=== PATIENT | female | born 1960 | race Caucasian/White ===

== ENCOUNTER 2018-11-12 07:56 | Inpatient (IN) | payer OTHER ==
[~2018-11-12] VITALS: Ht 162.6 cm; Wt 69.4 kg
[~2018-11-12 07:56] MED LIST: AUGMENTIN 875875 M1 PO; IBUPROFEN 800800 M1 PO; NOHOMEMEDICATIONS; PERCOCET 7.5-31 EACH PO; ZOFRAN ODT4 MG PO
[2018-11-12 07:57] VITALS: BP 98/65
--- NOTE | 2018-11-12 08:53 | NUR ---
ALEJA NOTIFIED UPON PT RETURN FROM CT. PT CONNECTED TO BP AND PULSE OX MONITOR SHE WAS PRIOR TO CT
[2018-11-12 13:01] VITALS: BP 98/65
[2018-11-12] MEDS ORDERED: LISINOPRIL-HCT1 EAC2 PO (13:45)
[2018-11-12 13:57] VITALS: BP 97/54
[2018-11-12 14:19] LABS: ABSOLUTE BASOPHILS 0.1 thou/uL (0.0-0.2); ABSOLUTE LYMPHOCYTES 1.1 thou/uL (0.8-5.3); ABSOLUTE MONOCYTES 0.7 thou/uL (0.0-1.2); ABSOLUTE NEUTROPHILS 9.5 thou/uL (1.6-8.1); BASOPHILS 0.6 %; EOSINOPHILS 0.1 %; HEMOGLOBIN 13.5 gm/dL (12.0-15.0); LYMPHOCYTES 9.5 %; MCH 33.1 pg (26.0-34.0); MCHC 33.7 g/dL (28.0-37.0); MCV 98.1 fL (80.0-100.0); MONOCYTES 5.8 %; MPV 8.6 fl. (7.2-11.1); NUCLEATED RBCS 0 /100WBC; PLATELET COUNT* 385 thou/uL (150-400); RBC 4.07 mil/uL (4.20-5.00); RDW-CV 12.6 % (10.5-14.5); WBC 11.3 thou/uL (4.0-11.0)
--- NOTE | 2018-11-12 14:20 | NUR ---
PATIENT ADMITTED TO ROOM 318 VIA CART FROM ER AT 1312. PATIENT UP SBA FROM CART TO BED. PATIENT'S HISTORY, VITALS, AND ASSESSMENT COMPLETED. PULMONARY CONSULT CALLED AND ORDERS RECEIVED. PATIENT PLACED ON O2 AT 2L/NC. PATIENT'S IV TO LEFT AC PATENT. SCDS APPLIED. HOME MEDS RECONCILED. PATIENT PLACED ON FALL PRECAUTIONS. PATIENT STATES RELIEF FROM FENTANYL. MENU PROVIDED. INSTRUCTED TO CALL FOR ASSISTANCE FOR BATHROOM. CALL LIGHT WITHIN REACH. WILL CONTINUE WITH PLAN OF CARE.
[2018-11-12 14:25] LABS: CALCIUM 9.2 mg/dL (8.5-10.1); CREATININE 0.7 mg/dL (0.6-1.3); POTASSIUM 4.9 mmol/L (3.5-5.1)
[2018-11-12 14:30] LABS: ALBUMIN 3.5 g/dL (3.4-5.0); TOTAL BILIRUBIN 0.4 mg/dL (<0.1-1.0)
[2018-11-12] MEDS ORDERED: WELLBUTRIN XL150 MG PO (15:03)
[2018-11-12 16:43] VITALS: BP 108/68
--- NOTE | 2018-11-12 17:14 | NUR ---
PATIENT HAS BEEN A/O X 4 SINCE ADMISSION. PATIENT MEDICATED FOR PAIN X 2 WITH PARTIAL RELIEF. O2 IN PLACE AT 2L/NC. PATIENT GIVEN I.S. AND INSTRUCTED ON HOW TO USE. PATIENT STARTED ON RT TREAMENTS. PATIENT INSTRUCTED TO USE BSC. PULM CONSULT, ORDERS RECEIVED. PATIENT HAS HAD VISITORS AT BEDSIDE. FALL PRECAUTIONS IN PLACE. HOURLY ROUNDING COMPLETED. CALL LIGHT WITHIN REACH. WILL CONTINUE WITH PLAN OF CARE.
[2018-11-12 20:00] VITALS: BP 128/68
[2018-11-13 04:12] LABS: ABSOLUTE BASOPHILS 0.1 thou/uL (0.0-0.2); ABSOLUTE EOSINOPHILS 0.1 thou/uL (0.0-0.7); ABSOLUTE LYMPHOCYTES 1.7 thou/uL (0.8-5.3); ABSOLUTE NEUTROPHILS 5.9 thou/uL (1.6-8.1); BASOPHILS 0.8 %; HEMATOCRIT 37.3 % (37.0-47.0); HEMOGLOBIN 12.6 gm/dL (12.0-15.0); LYMPHOCYTES 19.7 %; MCH 33.2 pg (26.0-34.0); MCHC 33.9 g/dL (28.0-37.0); MONOCYTES 10.9 %; MPV 8.9 fl. (7.2-11.1); NUCLEATED RBCS 0 /100WBC; PLATELET COUNT* 337 thou/uL (150-400); POLYS 67.6 %; RDW-CV 12.8 % (10.5-14.5); WBC 8.7 thou/uL (4.0-11.0)
[2018-11-13 04:35] LABS: CALCIUM 9.2 mg/dL (8.5-10.1); CREATININE 0.7 mg/dL (0.6-1.3); POTASSIUM 4.2 mmol/L (3.5-5.1)
--- NOTE | 2018-11-13 16:44 | NUR ---
ASSESSMENT COMPLETE. PATIENT ALERT AND ORIENTED X4. PT REPORTS FEELING IMPROVED TODAY. PT GIVEN PO PAIN MEDICATION TWICE DURING THE DAY. PT DENIES N/V. TOLERATING MEALS. PT UP AD TAM WITH STEADY GAIT. PT DENIES ANY CONCERNS. SEE ASSESSMENT AND VITALS FOR OTHER DETAILS. CALL LIGHT WITHIN REACH, WILL CONTINUE PLAN OF CARE
[2018-11-13 17:03] VITALS: BP 125/64
[2018-11-14 00:10] VITALS: BP 107/67
--- NOTE | 2018-11-14 07:45 | NUR ---
PATIENT SLEPT MOST OF THE NIGHT. PATIENT WAS GIVEN NAUSEA MEDICINE ONCE THIS SHIFT AND PAIN MEDICINE TWICE. PATIENT IS POSSIBLY LEAVING TODAY. WILL CONTINUE TO MONITOR.
[2018-11-14 07:49] VITALS: BP 136/78
[2018-11-14 13:47] VITALS: BP 136/78
[2018-11-14] MEDS ORDERED: ACETAMINOPHEN-1 EAC1 PO (13:47)
--- NOTE | 2018-11-14 16:20 | NUR ---
ASSESSMENT COMPLETE. PT REPORTED NAUSEA WITH PAIN MEDICATION AND PROVIDER SWITHCED IT TO TYLENOL 3 AND PATIENT REPORTED NO NAUSEA. PT GIVEN DC INSTRUCTIONS AND PRESCRIPTIONS. PT VERBALIZES UNDERSTANDING. ALL BELONGINGS SENT WITH PATIENT. SEE ASSESSMENT AND VITALS FOR OTHER DETAILS.
[2018-11-14 16:23] VITALS: BP 136/78
--- NOTE | 2018-11-15 08:13 | CON ---
[address] [address] CONSULTATION Name: VAZQUEZCHRISTINA MEJIA Room: [address] IN M.R.#: [id number] Admission: 11/12/18 Attend Phys: Kai Tan MD Discharge: 11/14/18 Date of : 60 Report #: [id number] THIS REPORT FOR: //name// CC: Kai Tan Valeri Slaughters DATE OF SERVICE: 11/13/2018 REQUESTING PHYSICIAN: Kai Tan MD. REASON FOR CONSULTATION: Pneumothorax, rib fractures. DISCUSSION: The patient is a very pleasant 58-year-old woman who is a former smoker. She has no history of underlying lung disease. She presented to the Emergency Department yesterday following a fall at home. The bag she was carrying had gotten its strap caught. She lost her balance and fell down. The right side of her chest did hit a large plastic drum. Initially, felt like she had "the wind knocked out of me." However, she developed increasing pain and shortness of breath. She was then brought to the Emergency Department. She was seen in the ED. Imaging studies done then included a CT scan of her chest without contrast. It did reveal fractures on the right side. These included the 7th through 11th. Also, had a small pleural effusion, a very small pneumothorax was noted. She was admitted and we were asked to see her. She was afebrile, room air O2 saturations were in the mid to high 90s and was started on IV pain medication. I was contacted. Did have her placed on supplemental O2 to help facilitate reabsorption of the pneumothorax. She was seen this morning. She is a former smoker, quit about 7-8 years ago. Had not been a heavy smoker at that time. Did quit when she had gone through a divorce. Smoked less than a pack of cigarettes per day. No history of any documented heart or lung problems. She generally has been a fairly healthy woman. PAST MEDICAL HISTORY: Remarkable for requiring a prior hysterectomy for fibroids as well as cervical dysplasia (no cancer). Also, had cellulitis in her hand following a dog bite some years ago. She has also had dislocation toes on the foot requiring surgery, had a left wrist surgery for fracture. HOME MEDICATIONS: Include Wellbutrin for anxiety as well as an antihypertensive. SOCIAL HISTORY: Former smoker as noted. A long time employer of [employer] [facility] [place] [address] CONSULTATION Name: CHRISTINA VAZQUEZ Room: [address] IN 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 Remote smoker as noted. REVIEW OF SYSTEMS: ROS was done. Note positives above. She had no syncopal episodes. No chest pain or palpitations. This was a mechanical fall. She otherwise not had any issues with cough, chest pain, shortness of breath. No GI symptoms. Was unremarkable. FAMILY HISTORY: Positive for heart disease, breast cancer, diabetes. PHYSICAL EXAMINATION: GENERAL: The patient is seen in her room. Currently, she is off the oxygen. HEENT: Head is normocephalic and atraumatic. Sclerae nonicteric. Mucous membranes are moist. NECK: Negative for adenopathy. No JVD is noted. No supraclavicular adenopathy. HEART: Regular rate. No murmur or gallop is heard. She does have ecchymotic areas seen posteriorly the right chest wall. It is more distal. No subcutaneous emphysema is noted. She is tender with palpation over the right lateral and posterior ribs. LUNGS: Sounds are clear. Breath sounds are somewhat diminished mostly because of guarding and has a tendency to taking a deep breath. She has no clubbing. ABDOMEN: Unremarkable. LOWER EXTREMITIES: Negative for edema. SKIN: Warm and dry. NEUROLOGIC: She is alert and oriented x 3. LABORATORY AND X-RAY FINDINGS: CT chest as noted above. Chest x-ray done this morning shows a very minimal right apical pneumothorax. It does not appear she has had any significant increase in right pleural effusion. Rib fractures as noted. On her chemistry, sodium was 128, potassium 4.2, BUN 7, creatinine of 0.7, albumin 3.5. White blood cell count 8700, hemoglobin 12.6, hematocrit 37.3, platelets are normal. IMPRESSION: 1. Status post mechanical fall. Right rib fractures. A small pneumothorax which did not require any treatment. A small pleural effusion, most likely very small hemothorax. No need for chest tube. 2. History of hypertension. 3. History of anxiety. RECOMMENDATIONS: 1. Can keep off O2. 2. Continue IS. 3. She has been receiving IV fentanyl. Per my viewpoint, she can be safely discharged home once her pain can be managed on oral pain medications. [address] [address] CONSULTATION Name: CHRISTINA VAZQUEZ Room: [address] [place] [facility]#: [id number] Admission: 11/12/18 Attend Phys: Kai Tan MD Discharge: 11/14/18 Date of : 60 Report #: [id number] 4. Activity as tolerated. 5. Consider followup chest x-ray in 1-2 weeks. 6. She could probably return to work in another 1-2 weeks depending on required activity level. Cannot do any heavy lifting for 6 weeks. Also, no air travel for 6 weeks. 7. If she would have marked change in her respiratory status, i.e., increased pain, shortness of breath, etc., should be reevaluated in the ED. <ELECTRONICALLY SIGNED> By: Kaycee Greene MD 11/15/18 0813 [id number] Greene MD /nt
== END 2018-11-14 16:20 | disposition home or self-care (01) | DRG 184 ==
LOC: M.ERS 07:56 → M.TBA-ER 10:07 → M.3W 10:07
PROVIDERS: ADMIT Internal Medicine
DX: S22.41XA Multiple fractures of ribs, right side, initial encounter for closed fracture (principal); S27.0XXA Traumatic pneumothorax, initial encounter; I10 Essential (primary) hypertension; F41.9 Anxiety disorder, unspecified; W18.39XA Other fall on same level, initial encounter; Y93.89 Activity, other specified; Y92.89 Other specified places as the place of occurrence of the external cause; Y99.8 Other external cause status; Z90.710 Acquired absence of both cervix and uterus; Z87.891 Personal history of nicotine dependence; Z79.899 Other long term (current) drug therapy; Z88.8 Allergy status to other drugs, medicaments and biological substances; Z82.49 Family history of ischemic heart disease and other diseases of the circulatory system; Z80.3 Family history of malignant neoplasm of breast; Z83.3 Family history of diabetes mellitus